=== PATIENT | male | born 1970 | race Caucasian/White ===

== ENCOUNTER 2017-06-22 23:04 | Emergency (ER) | payer BC, OTHER, SELFPAY ==
[2017-06-22 23:05] VITALS: BP 126/79; PULSE 82; RESP 14; TEMP 37.4; O2SAT 93; BMI 26.4
[2017-06-22 23:06] VITALS: BMI 26.4
--- NOTE | 2017-06-22 23:07 | XR_ITS ---
XR chest portable COMPARISON: None HISTORY: Off TECHNIQUE: Portable upright chest FINDINGS: The lung shultz are well expanded and appear clear of infiltrate. There is minimal discoid atelectasis or scarring at each lung base. Cardiac size is normal and is no pleural fluid. IMPRESSION: Nonacute chest findings
--- NOTE | 2017-06-22 23:33 | [facility].EDNVD ---
ED Disposition Clinical Impression: Influenza, Vasovagal episode Disposition: Home, Self-Care Condition on Discharge: Good Instructions: Influenza Additional Instructions: fluids and see pcp for follow up Prescriptions: Ondansetron HCl [Zofran 4mg Tab] 4 mg PO TID 7 Days #20 tab Oseltamivir Phosphate [Tamiflu 75mg Capsule] 75 mg PO BID #10 cap Referrals: Elfego Lester MD [Primary Care Provider] - - Critical Care Critical Care Time: No Attestation: On 06/22/17, the high probability of a clinically significant, sudden or life threatening deterioration of the following system(s) required my full and direct attention, intervention and personal management. The time I documented below is in addition to time spent performing reported procedures but includes the following listed in this critical care notation. Medical Decision Making - Medical Records Medical records reviewed: Yes: I reviewed the patient's medical records. Vital Signs: 06/22/17 23:05 06/22/17 23:40 06/23/17 00:32 Temperature 99.3 F Temperature Source Oral Pulse Rate [Right Brachial] 82 82 78 Respiratory Rate 14 16 14 Blood Pressure [Right Arm] 126/79 128/72 122/72 Blood Pressure Mean [Right Arm] 94 90 88 Blood Pressure Source [Right Arm] Automatic Cuff Automatic Cuff Automatic Cuff Blood Pressure Position [Right Arm] Supine Supine 02 Sat by Pulse Oximetry 93 L 97 96 Oxygen Delivery Method Room Air Room Air Room Air 06/23/17 00:56 Temperature Temperature Source Pulse Rate [Right Brachial] 75 Respiratory Rate 16 Blood Pressure [Right Arm] 120/74 Blood Pressure Mean [Right Arm] 89 Blood Pressure Source [Right Arm] Automatic Cuff Blood Pressure Position [Right Arm] Supine 02 Sat by Pulse Oximetry 90 L Oxygen Delivery Method Room Air - Lab Data Lab results reviewed: Yes: I reviewed the patient's lab results. Lab Results 06/22/17 23:00: WBC 5.7, RBC 5.49, Hgb 16.3, Hct 48.8, MCV 88.8, MCH 29.8, MCHC 33.5, RDW 12.7, Plt Count 178, MPV 8.0, Neut % (Auto) 52.6, Lymph % (Auto) 40.0, Thomas % (Auto) 6.2, Eos % (Auto) 0.8, Baso % (Auto) 0.4, Neut # (Auto) 3.0, Lymph # (Auto) 2.3, Thomas # (Auto) 0.4, Eos # (Auto) 0.0, Baso # (Auto) 0.0 06/22/17 23:00: Sodium 139, Potassium 3.8, Chloride 104, Carbon Dioxide 26, Anion Gap 12.8, BUN 15, Creatinine 1.04, Estimated Creat Clear 107, Estimated GFR 77, Est GFR ( Amer) 93, Glucose 111 H, Calcium 8.4 L, Total Bilirubin 0.7, AST 29, ALT 43, Alkaline Phosphatase 68, Total Creatine Kinase 143, CK-MB (CK-2) < 0.5, CK-MB (CK-2) Rel Index 0.3, Troponin I < 0.02, Total Protein 7.0, Albumin 3.8, Globulin 3.2, Albumin/Globulin Ratio 1.2, Amylase 57, Lipase 111 06/22/17 23:15: Influenza Type A Ag Positive A, Influenza Type B Ag Negative, Group A Strep Rapid Negative 06/22/17 23:45: Urine Color Yellow, Urine Appearance Clear, Urine pH 6.0, Ur Specific [place] 1.025, Urine Protein 1+, Urine Glucose (UA) Negative, Urine Ketones 1+, Urine Blood Negative, Urine Nitrate Negative, Urine Bilirubin Negative, Urine Urobilinogen 2.0, Ur Leukocyte Esterase Negative, Amorphous Sediment Trace, Urine Mucus 3+ Result diagrams: 06/22/17 23:00 06/22/17 23:00 Orders (Tests/Meds): ORDERS Category Date Time Status XR chest portable Stat Exams 06/22/17 23:07 Taken Strep Screen Confirmation Stat Micro 06/22/17 23:15 Received ECG Request by /Lopez Stat Y 06/22/17 23:07 Ordered - Radiology Data #1 Image(s): Chest Image Reviewed: Yes I reviewed the patient's radiology image Preliminary Findings: Normal/NAD - ECG Data Tracing #1 I reviewed this ECG and interpreted as documented below: Normal Sinus Rhythm: Yes Ischemic changes: non-specific ST-T wave changes - [place] Inquiry Pt receiving controlled substance: No Nausea/Vomiting/Diarrhea HPI - General Chief complaint: Nausea/Vomiting/Diarrhea Stated complaint: SYNCOPAL EPISODE Time Seen by Provider: 06/22/17 23:10 Mode of Arrival: E
--- NOTE | 2017-06-22 23:36 | ED_ITS ---
ED Disposition Clinical Impression: Influenza, Vasovagal episode Disposition: Home, Self-Care Condition on Discharge: Good Instructions: Influenza Additional Instructions: fluids and see pcp for follow up Prescriptions: Ondansetron HCl [Zofran 4mg Tab] 4 mg PO TID 7 Days #20 tab Oseltamivir Phosphate [Tamiflu 75mg Capsule] 75 mg PO BID #10 cap Referrals: Elfego Lester MD [Primary Care Provider] - - Critical Care Critical Care Time: No Attestation: On 06/22/17, the high probability of a clinically significant, sudden or life threatening deterioration of the following system(s) required my full and direct attention, intervention and personal management. The time I documented below is in addition to time spent performing reported procedures but includes the following listed in this critical care notation. Medical Decision Making - Medical Records Medical records reviewed: Yes: I reviewed the patient's medical records. Vital Signs: 06/22/17 23:05 06/22/17 23:40 06/23/17 00:32 Temperature 99.3 F Temperature Source Oral Pulse Rate [Right Brachial] 82 82 78 Respiratory Rate 14 16 14 Blood Pressure [Right Arm] 126/79 128/72 122/72 Blood Pressure Mean [Right Arm] 94 90 88 Blood Pressure Source [Right Arm] Automatic Cuff Automatic Cuff Automatic Cuff Blood Pressure Position [Right Arm] Supine Supine 02 Sat by Pulse Oximetry 93 L 97 96 Oxygen Delivery Method Room Air Room Air Room Air 06/23/17 00:56 Temperature Temperature Source Pulse Rate [Right Brachial] 75 Respiratory Rate 16 Blood Pressure [Right Arm] 120/74 Blood Pressure Mean [Right Arm] 89 Blood Pressure Source [Right Arm] Automatic Cuff Blood Pressure Position [Right Arm] Supine 02 Sat by Pulse Oximetry 90 L Oxygen Delivery Method Room Air - Lab Data Lab results reviewed: Yes: I reviewed the patient's lab results. Lab Results 06/22/17 23:00: WBC 5.7, RBC 5.49, Hgb 16.3, Hct 48.8, MCV 88.8, MCH 29.8, MCHC 33.5, RDW 12.7, Plt Count 178, MPV 8.0, Neut % (Auto) 52.6, Lymph % (Auto) 40.0 , [place] % (Auto) 6.2, Eos % (Auto) 0.8, Baso % (Auto) 0.4, Neut # (Auto) 3.0, Lymph # (Auto) 2.3, [place] # (Auto) 0.4, Eos # (Auto) 0.0, Baso # (Auto) 0.0 06/22/17 23:00: Sodium 139, Potassium 3.8, Chloride 104, Carbon Dioxide 26, Anion Gap 12.8, BUN 15, Creatinine 1.04, Estimated Creat Clear 107, Estimated GFR 77, Est GFR ( Amer) 93, Glucose 111 H, Calcium 8.4 L, Total Bilirubin 0.7, AST 29, ALT 43, Alkaline Phosphatase 68, Total Creatine Kinase 143, CK-MB (CK-2) < 0.5, CK-MB (CK-2) Rel Index 0.3, Troponin I < 0.02, Total Protein 7.0, Albumin 3.8, Globulin 3.2, Albumin/Globulin Ratio 1.2, Amylase 57, Lipase 111 06/22/17 23:15: Influenza Type A Ag Positive A, Influenza Type B Ag Negative, Group A Strep Rapid Negative 06/22/17 23:45: Urine Color Yellow, Urine Appearance Clear, Urine pH 6.0, Ur Specific [place] 1.025, Urine Protein 1+, Urine Glucose (UA) Negative, Urine Ketones 1+, Urine Blood Negative, Urine Nitrate Negative, Urine Bilirubin Negative, Urine Urobilinogen 2.0, Ur Leukocyte Esterase Negative, Amorphous Sediment Trace, Urine Mucus 3+ Result diagrams: 06/22/17 23:00 06/22/17 23:00 Orders (Tests/Meds): ORDERS Category Date Time Status XR chest portable Stat Exams 06/22/17 23:07 Taken Strep Screen Confirmation Stat Micro 06/22/17 23:15 Received ECG
[2017-06-22 23:37] LABS: Basophils % 0.4 % (0.1-2.0); Eosinophils % 0.8 % (0.1-12.0); Hematocrit 48.8 % (42.0-52.0); Hemoglobin 16.3 g/dL (14.1-18.0); Lymphocytes # 2.3 K/mm3 (0.7-4.5); Mean Corpuscular HGB Conc 33.5 g/dL (31.8-35.4); Mean Corpuscular Hemoglobin 29.8 pg (27.0-31.2); Mean Corpuscular Volume 88.8 fl (80-94); Monocytes # 0.4 K/mm3 (0.1-1.0); Monocytes % 6.2 % (1.7-9.3); Neutrophils % 52.6 % (37.0-80.0); Platelet Count 178 K/mm3 (142-424); Red Blood Count 5.49 M/mm3 (4.60-6.20); Red Cell Distribution Width 12.7 % (11.5-17.5); White Blood Count 5.7 K/mm3 (4.8-10.8)
[2017-06-22 23:40] VITALS: BP 128/72; PULSE 82; RESP 16; O2SAT 97
[2017-06-22 23:46] LABS: Microscopic, Urine URINE MICROSCOPIC (MICROSCOPIC)
[2017-06-22 23:48] LABS: Appearance,Urine CLEAR (Clear); Bilirubin,Urine Negative (Negative); Blood, Urine Negative (Negative); Color,Urine YELLOW (Yellow); Glucose,Urine (UA) Negative (Negative); Ketones,Urine 1+ (Negative); Leukocyte Esterase,Urine Negative (Negative); Nitrate,Urine Negative (Negative); Protein,Urine 1+ (Negative); Specific Gravity, Urine 1.025 (1.005-1.030)
[2017-06-22 23:50] LABS: Alanine Aminotransferase 43 U/L (12-78); Alkaline Phosphatase 68 U/L (46-116); Amylase 57 U/L (25-125); Aspartate Amino Transferase 29 U/L (15-37); Bilirubin,Total 0.7 mg/dL (0.2-1.0); Blood Urea Nitrogen 15 mg/dL (7-18); Chloride 104 mmol/L (98-107); Creatine Kinase 143 U/L (39-308); Potassium 3.8 mmoL/L (3.5-5.1); Sodium 139 mmol/L (136-145)
[2017-06-22 23:53] LABS: Strep Scrn Group A (Rapid) Negative (Negative)
[2017-06-22 23:59] LABS: Amorphous Sediment,Urine Trace /lpf; Mucus,Urine 3+ /lpf
[2017-06-23 00:07] LABS: Albumin Level 3.8 gm/dL (3.4-5.0); Albumin/Globulin Ratio 1.2 (1.1-1.8); Anion Gap 12.8 mEq/L (5-15); Calcium 8.4 mg/dL (8.5-10.1); Carbon Dioxide 26 mmol/L (21.0-32.0); Creatinine Clearance Estimated 107 mL/min (0-300); Creatinine,Serum 1.04 mg/dL (0.70-1.30); Estimated Glomerular Filt Rate 77 ml/min (>60); GFR (African American) 93 ML/MIN (>60); Globulin 3.2 gm/dl (1.3-3.2); Glucose 111 mg/dL (74-106); Lipase 111 u/L (73-393)
[2017-06-23 00:21] LABS: Troponin I < 0.02 ng/ml (0.00-0.06)
[2017-06-23 00:26] LABS: CKMB Relative Index 0.3 U/L (0-4.0); Creatine Kinase MB < 0.5 mg/ml (0.0-3.6)
[2017-06-23 00:32] VITALS: BP 122/72; PULSE 78; RESP 14; O2SAT 96
[2017-06-23 00:56] VITALS: BP 120/74; PULSE 75; RESP 16; O2SAT 90
[2017-06-23 01:16] VITALS: BP 120/73; PULSE 76; RESP 16; TEMP 37.2; O2SAT 92
== END 2017-06-23 01:17 | disposition home or self-care (01) ==
PROVIDERS: Emergency Provider Emergency Medicine; Family Provider Family Medicine; PCP Family Medicine
DX: J09.X2 Influenza due to identified novel influenza A virus with other respiratory manifestations (principal); R55 Syncope and collapse
CPT/HCPCS: 71045; 80053; 81001; 82150; 82550; 82553; 83690; 84484; 85025; 87275; 87276; 87430; 93005; 93041; 96365; 96366; 99284

== ENCOUNTER → 2019-09-08 12:21 | Outpatient (CLI) | payer BC, OTHER, SELFPAY ==
--- NOTE | 2019-09-08 12:30 | CT_ITS ---
PROCEDURE: CT ABDOMEN PELVIS WO CON CLINICAL INDICATION: RENAL STONE Left flank pain COMPARISON: No exams were available for comparison TECHNIQUE: Axial images obtained with sagittal and coronal reformats. All CT scans at the facility use one or more dose reduction, viz: automated exposure control, ma/kV adjustment per patient size (including targeted exams where dose is matched to indication, i.e. head), or iterative reconstruction technique. FINDINGS: LOWER THORAX: There is a calcified granuloma in the right middle lobe. ABDOMEN & PELVIS: The liver, gallbladder, adrenal glands, and pancreas have an unremarkable unenhanced CT appearance. There is mild splenomegaly at 13 cm. There are punctate bilateral renal calculi measuring up to the 3 mm in the lower pole in both kidneys. There is mild left hydroureteronephrosis secondary to a 3 mm left ureterovesical junction stone. No intestinal obstruction or free air. No evidence of appendicitis. There is diverticulosis of the descending and sigmoid colon but no evidence of diverticulitis. The colon appears thickened throughout but could be related to nondistention. There is slight increased density of the central mesenteric fat with mildly prominent mesenteric lymph nodes measuring up to 2.2 x 1.2 cm in the central mesenteric region. The no acute bony anomalies are evident. No pelvic mass or abnormal fluid collection in the pelvis. There are few small inguinal lymph nodes. There is a small umbilical hernia which contains fat IMPRESSION: 1. 3 mm left ureterovesical junction stone with mild left hydroureteronephrosis. 2. Punctate bilateral renal calculi 3. Mild mesenteric adenopathy. There is faint increased density in the mesenteric fat centrally. These findings may be seen with mesenteric adenitis/panniculitis among other entities such as adjacent inflammation, infection, or neoplasm. 4. Colonic diverticulosis. Mild diffuse thickened appearance of the colon which may only be due to nondistention but could also be seen with colitis Dictated by: Bryson Archer MD 09/08/2019 13:30 Electronically signed by Bryson Archer MD in [place] 09/08/2019 13:30
== END ==
PROVIDERS: PCP Family Medicine; Visit Provider Family Medicine
DX: N20.0 Calculus of kidney (principal)
CPT/HCPCS: 74176

== ENCOUNTER → 2019-11-30 20:14 | Outpatient (CLI) | payer BC, OTHER, SELFPAY | PROVIDERS: PCP Family Medicine; Visit Provider Family Medicine | DX: G47.33 Obstructive sleep apnea (adult) (pediatric) (principal) | CPT/HCPCS: G0399 ==